=== PATIENT | female | born 1955 | race Caucasian/White ===

== ENCOUNTER 2017-05-06 19:41 | Emergency (ER) | payer OTHER ==
--- NOTE | 2017-05-06 20:38 | ED Physician Chart ---
ED Chief Complaint/HPI - Patient Information Date Seen:: 05/06/17 Time Seen:: 20:15 Chief Complaint:: right wrist pain History of Present Illness:: At about 11:00 this morning this patient fell from the third step of a ladder breaking her fall with the palm of her right hand hyperextending her right wrist. Patient is right-hand dominant. Allergies:: Allergies Allergy/AdvReac Type Severity Reaction Status Date / Time No Known Allergies Allergy Verified 05/06/17 20:11 Vitals:: Vital Signs - 8 hr 05/06/17 20:00 Temp 98.3 F HR 89 RR 18 BP 149/73 O2 Sat % 96 Historian:: Patient Review:: Nurse's Note Reviewed ED Review of Systems - Review of Systems General/Constitutional: No fever, No chills Skin: No skin lesions Head: No headache Eyes: No loss of vision ENT: No earache Neck: No neck pain Cardio Vascular: No chest pain Pulmonary: No SOB GI: No nausea, No vomiting, No diarrhea G/U: No dysuria Musculoskeletal: Bone or joint pain Endocrine: No polyuria Psychiatric: No prior psych history ED Past Medical History - Past Medical History Past Medical History: No significant medical hx Family History: Heart disease, Diabetes Melitus, HTN Social History: Non Smoker, No Alcohol, No Drug Use Surgical History: other (esophageal and uterine polyps) Psychiatricy History: None Family Medical History - Family Member Mother Ethnicity: Non- Living Status: Still Living Hx Family Hypertension: Yes ED Physical Exam - Physical Examination General/Constitutional: Well-developed, well-nourished, Alert, No distress Head: Atraumatic Eyes: Lids, conjuctiva normal, PERRL Skin: Nl inspection, No rash, No skin lesions, No ecchymosis ENMT: External ears, nose nl Neck: No nuchal rigidity Respiratory: Nl effort/Exclusion, Clear to Auscultation, No Wheeze/Rhonchi/Rales Cardio Vascular: RRR, No murmur, gallop, rubs, NL S1 S2 GI: No tenderness/rebounding/guarding : No CVA tenderness Other Extremities comments:: Swelling and tenderness over the radius right wrist; mild tenderness over over anatomic snuff box Neuro/Psych: No focal deficits ED Labs/Radiology/EKG Results - Radiology Results Results: X-ray right wrist negative for fracture ED Assessment - Assessment General Assessment: Three-inch Zac wrap applied right wrist ED Septic Shock - . Is Septic Shock (SBP<90, OR Lactate>4 mmol\L) present?: No - <6hrs of presentation: Vital Signs: Vital Signs - 8 hr 05/06/ 20:00 Temp 98.3 F HR 89 RR 18 BP 149/73 O2 Sat % 96 ED Reassessment (Disposition) - Reassessment Reassessment Condition:: Unchanged - Diagnosis Diagnosis:: Sprain right wrist - Aftercare/Follow up Instructions Aftercare/Follow-Up Instructions:: Refer to Discharge Instructions - Patient Disposition Discharge/Transfer:: Home Condition at Disposition:: Stable, Unchanged
--- NOTE | 2017-05-07 08:52 | Diagnostic Imaging Report ---
Exam: Right wrist joint. HISTORY: Trauma. Findings: Multiple views of the right wrist joint reviewed. The study demonstrates no evidence of fracture or dislocation. The radiocarpal joint is intact. The carpal bones are normal. Mild degenerative changes of the radiocarpal joint appreciated. IMPRESSION: Normal examination right wrist joint. Mild degenerative changes.
== END 2017-05-06 21:05 | disposition home or self-care (01) ==
LOC: ER 19:41
DX: S63.501A Unspecified sprain of right wrist, initial encounter (principal); W11.XXXA Fall on and from ladder, initial encounter; Y93.89 Activity, other specified; Y92.89 Other specified places as the place of occurrence of the external cause; Y99.8 Other external cause status
CPT/HCPCS: 73110-TC-RT; Z7502